=== PATIENT | male | born 1970 | race African-American/Black ===

== ENCOUNTER 2020-12-01 16:12 | Emergency (ER) | payer OTHER ==
[2020-12-01 16:48] VITALS: PULSE 86; TEMP 97.8; BMI 26.6
[2020-12-01] MEDS ORDERED: HYDROCHLOROTHIAZIDE 25 MG TABLET (FP) PO ONE (17:04)
[2020-12-01] MEDS ORDERED: HYDROCHLOROTHIAZIDE 25 MG TABLET (FP) ONE (17:13)
[2020-12-01] MEDS ORDERED: amLODIPine BESYLATE 5 MG TABLET (FP) PO ONE (18:39)
[2020-12-01] MEDS ORDERED: amLODIPine BESYLATE 5 MG TABLET (FP) ONE (18:56)
[2020-12-01 19:11] VITALS: BP 189/120
== END 2020-12-01 19:11 | disposition home or self-care (01) ==
LOC: JER 16:12
DX: I10 Essential (primary) hypertension (principal)
CPT/HCPCS: 99283-25

== ENCOUNTER 2022-04-18 07:46 | Observation (INO) | payer OTHER ==
[2022-04-18] MEDS ORDERED: FAMOTIDINE 20 MG/50 ML IVPB 20 MG/50 ML MG IVPB ONE ×2 (08:25→08:32)
[2022-04-18] MEDS ORDERED: DEXAMETHASONE SOD PHOSPHATE 10 MG/1 ML VIAL IVPUSH ONE (08:25)
[2022-04-18] MEDS ORDERED: DEXAMETHASONE SOD PHOSPHATE 10 MG/1 ML VIAL ONE (08:32)
[2022-04-18 09:06] LABS: BASO % 1.5 % (0-2.0); EOS % 3.8 % (0-4.5); HEMATOCRIT 40.4 % (35.4-49); HEMOGLOBIN 13.9 GM/dL (11.7-16.9); LYMPH % 24.4 % (8-40); MCH 32.5 pg (25.7-33.7); MCHC 34.5 g/dl (32.0-35.9); MEAN CELL VOLUME 94.2 fl (80-96); MEAN PLT VOLUME 7.6 fl (7.5-11.1); MONO % 8.6 % (3.8-10.2); NEUT % 61.7 % (42.8-82.8); PLATELET COUNT 210 10^3/uL (134-434); RBC 4.29 M/mm3 (4.00-5.60); RDW 13.6 % (11.9-15.9); WHITE BLOOD COUNT 9.3 K/mm3 (4.0-10.0)
[2022-04-18 09:41] LABS: ALBUMIN 3.5 g/dl (3.4-5.0); BLOOD UREA NITROGEN 11.5 mg/dL (7-18)
[2022-04-18 09:45] LABS: BILIRUBIN,TOTAL 0.6 mg/dL (0.2-1); CREATININE 1.1 mg/dL (0.55-1.3)
[2022-04-18] MEDS ORDERED: ACETAMINOPHEN 1000 MG/100 ML BAG IVPB PRN (14:23)
[2022-04-18] MEDS ORDERED: methylPREDNISolone NA SUCC 40 MG/1 ML VIAL ONE (19:06)
[2022-04-18] MEDS: methylPREDNISolone NA SUCC 40 MG/1 ML VIAL IVPUSH SCH (19:14)
[2022-04-19 02:49] VITALS: RESP 18; BMI 22.1
[2022-04-19] MEDS: methylPREDNISolone NA SUCC 40 MG/1 ML VIAL IVPUSH SCH ×2 (02:56→09:48)
[2022-04-19] MEDS ORDERED: amLODIPine BESYLATE 5 MG TABLET (FP) PO SCH (10:00)
[2022-04-19] MEDS ORDERED: NICOTINE 7 MG/24 HOURS TOPICAL PATCH TD SCH (10:00)
[2022-04-19] MEDS ORDERED: ACETAMINOPHEN 325 MG TABLET (FP) PO PRN (10:56)
[2022-04-19 14:42] VITALS: BP 153/89; PULSE 92; TEMP 97
[2022-04-19] MEDS ORDERED: predniSONE 20 MG TABLET (UD) PO ONE (17:00)
[2022-04-20] MEDS ORDERED: predniSONE 20 MG TABLET (UD) PO SCH (10:00)
== END 2022-04-19 18:15 | disposition home or self-care (01) ==
LOC: JER 07:46 → JERBED 13:24 → J8W 21:05
PROVIDERS: ADMIT Internal Medicine; ATTEND Nurse Practitioner Family
PROC: 3E033GC Introduction of Other Therapeutic Substance into Peripheral Vein, Percutaneous Approach (ICD-10-PCS; principal; 2022-04-18)
DX: T46.1X Poisoning by, adverse effect of and underdosing of calcium-channel blockers (principal); T46.4X4A Poisoning by angiotensin-converting-enzyme inhibitors, undetermined, initial encounter; T78.3XXA Angioneurotic edema, initial encounter; X58.XXXA Exposure to other specified factors, initial encounter; J45.909 Unspecified asthma, uncomplicated; I10 Essential (primary) hypertension; F17.210 Nicotine dependence, cigarettes, uncomplicated
CPT/HCPCS: 36415; 80053; 85025; 93005; 93010; 96365; 96375; 96376; 99285-25; C9803-CS; G0378; J1100; U0003; U0005

== ENCOUNTER 2022-10-29 10:23 | Emergency (ER) | payer OTHER ==
[2022-10-29 10:30] VITALS: BMI 21.3
[2022-10-29 12:06] VITALS: BP 145/90; PULSE 86; RESP 16; TEMP 98.4
== END 2022-10-29 12:07 | disposition home or self-care (01) ==
LOC: JER 10:23
DX: R20.2 Paresthesia of skin (principal); K59.00 Constipation, unspecified
CPT/HCPCS: 99282-25

== ENCOUNTER 2023-01-16 00:49 | Emergency (ER) | payer OTHER ==
[2023-01-16 01:00] VITALS: TEMP 97.4; BMI 21.7
[2023-01-16] MEDS ORDERED: FAMOTIDINE 20 MG/50 ML IVPB 20 MG/50 ML MG IVPB ONE ×2 (01:17→01:53)
[2023-01-16] MEDS ORDERED: DEXAMETHASONE SOD PHOSPHATE 10 MG/1 ML VIAL IVPUSH ONE (01:17)
[2023-01-16] MEDS ORDERED: DEXAMETHASONE SOD PHOSPHATE 10 MG/1 ML VIAL ONE (01:53)
[2023-01-16 01:54] LABS: BASO % 1.5 % (0-2.0); EOS % 3.3 % (0-4.5); HEMATOCRIT 39.6 % (35.4-49); HEMOGLOBIN 13.6 GM/dL (11.7-16.9); LYMPH % 38.7 % (8-40); MCH 33.3 pg (25.7-33.7); MCHC 34.2 g/dl (32.0-35.9); MEAN CELL VOLUME 97.1 fl (80-96); MEAN PLT VOLUME 7.4 fl (7.5-11.1); MONO % 6.5 % (3.8-10.2); PLATELET COUNT 188 10^3/uL (134-434); RBC 4.08 M/mm3 (4.00-5.60); RDW 13.8 % (11.9-15.9); WHITE BLOOD COUNT 6.9 K/mm3 (4.0-10.0)
[2023-01-16 02:05] LABS: INR 0.76 (0.83-1.09); PROTHROMBIN TIME (PATIENT) 8.8 SEC (9.7-13.0)
[2023-01-16 02:08] LABS: ACTIVATED PTT 26.3 SECONDS (25.2-36.5)
[2023-01-16 02:12] LABS: POTASSIUM 3.6 mmol/L (3.5-5.1)
[2023-01-16 02:14] LABS: CALCIUM 8.1 mg/dL (8.5-10.1)
[2023-01-16 02:15] LABS: BLOOD UREA NITROGEN 19.6 mg/dL (7-18)
[2023-01-16 02:18] LABS: CREATININE 1.3 mg/dL (0.55-1.3)
[2023-01-16 02:19] LABS: BILIRUBIN,TOTAL 0.2 mg/dL (0.2-1); TOT PROT 6.1 g/dl (6.4-8.2)
[2023-01-16] MEDS ORDERED: amLODIPine BESYLATE 10 MG TABLET (FP) PO ONE (02:39)
[2023-01-16] MEDS ORDERED: SODIUM CHLORIDE 0.9% 500 ML INFUS.BAG IV ONE (02:39)
[2023-01-16] MEDS ORDERED: amLODIPine BESYLATE 10 MG TABLET (FP) ONE (02:48)
[2023-01-16 06:23] VITALS: BP 177/111; PULSE 67; RESP 17
== END 2023-01-16 06:24 | disposition home or self-care (01) ==
LOC: JER 00:49
PROC: 3E033GC Introduction of Other Therapeutic Substance into Peripheral Vein, Percutaneous Approach (ICD-10-PCS; principal; 2023-01-16)
PROC: 3E033GC Introduction of Other Therapeutic Substance into Peripheral Vein, Percutaneous Approach (ICD-10-PCS; 2023-01-16)
PROC: 3E033GC Introduction of Other Therapeutic Substance into Peripheral Vein, Percutaneous Approach (ICD-10-PCS; 2023-01-16)
DX: R22.0 Localized swelling, mass and lump, head (principal); I10 Essential (primary) hypertension; R51.9 Headache, unspecified
CPT/HCPCS: 36415; 80053; 84484; 85025; 85610; 85730; 93005; 93010; 99284-25; J1100